=== PATIENT | female | born 1990 | race American Indian/Alaskan Native ===

== ENCOUNTER 2021-02-17 03:42 | Inpatient (IN) | payer MEDICAID ==
[2021-02-17] MEDS ORDERED: OXYTOCIN 10 UNIT/1 ML INJ IM PRN (04:37)
[2021-02-17] MEDS ORDERED: CARBOPROST TROMETHAMINE 250 MCG/1 ML INJ IM PRN (04:37)
[2021-02-17] MEDS ORDERED: MINERAL OIL 30 ML ORAL LIQD PO PRN (04:37)
[2021-02-17] MEDS ORDERED: BUTORPHANOL 2 MG/1 ML INJ IV PRN (04:37)
[2021-02-17] MEDS ORDERED: METHYLERGONOVINE MALEATE 0.2 MG/ML VIAL IM PRN (04:37)
[2021-02-17] MEDS ORDERED: TERBUTALINE 1 MG/1 ML INJ SUB-Q PRN (04:37)
[2021-02-17] MEDS ORDERED: LIDOCAINE (2%) 20 MG/1 ML VIAL 20 ML MDV INFILTRATI ONE ×2 (04:37→09:06)
[2021-02-17] MEDS ORDERED: miSOPROStol 200 MCG TAB PR PRN (04:37)
[2021-02-17] MEDS ORDERED: ONDANSETRON 4 MG/2 ML INJ IV PRN ×2 (04:37→15:00)
[2021-02-17] MEDS ORDERED: ePHEDrine SULFATE 50 MG/1 ML INJ IV PRN ×2 (04:37→09:30)
[2021-02-17] MEDS ORDERED: LOPERAMIDE 2 MG CAP PO PRN (04:37)
[2021-02-17] MEDS ORDERED: ACETAMINOPHEN 325 MG TAB PO PRN ×2 (04:37→14:37)
--- NOTE | 2021-02-17 04:50 | History and Physical Report ---
History of Present Illness Date of examination: 02/17/21 Date of admission: 02/17/21 04:15 Chief complaint: contractions History of present illness: EDC Calculations by LMP: 02/11/2021 Past History : 1 Term Births: 0 Premature Births: 0 Living Children: 0 Para: 0 Mult. Births: 0 Prev : 0 Aborta: 0 Elect. Ab: 0 Spont. Ab: 0 Ectopics: 0 Past Medical History: Reviewed history and no changes required: Negative Past Medical History Past Surgical History: Reviewed history and no changes required: negative Past Medical History Anesthesia Complications: negative Anemia: negative Autoimmune Disorder: negative Bleeding Disorder: negative Blood Transfusions: negative Breast Disease: negative Diabetes: negative Heart Disease: negative Hypertension: negative Hepatitis/Liver Disease: negative Kidney Disease/UTI: negative Neurologic/Epilepsy/Migraines: negative Phlebitis/Varicosities: negative Psychiatric: negative Pulmonary Disease/Asthma: negative Thyroid Disease: negative Hospitalizations: negative Surgery (Non-hse manager): negative Abnormal PAP: negative MARYSE Exposure: negative Infertility: negative Uterine Anomaly: negative Uterine Surgery (not C/S): negative Other Gynecologic Problems: negative Family Hx: CA: grandmother, colon DM: Grandmother HTN: Mother Infection History Hx of STD: none HIV Risk Eval: no Hepatitis B Risk Eval: low risk Personal hx. of genital herpes: no Partner hx. of genital herpes: no Rash, Viral, or Febrile illness since last LMP? no Varicella/Chicken Pox Status: Previous Disease TB Risk: no Genetic History Congenital Heart Defect: Mom: no Dad: no Ashley Disease: Mom: no Dad: no Thalassemia Mom: no Dad: no Neural Tube Defect Mom: no Dad: no Down's Syndrome Mom: no Dad: no Juan-Sachs Mom: no Dad: no Sickle Cell Disease/Trait Mom: no Dad: no Hemophilia Mom: no Dad: no Muscular Dystrophy Mom: no Dad: no Cystic Fibrosis Mom: no Dad: no 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 (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 HPI) Family/Genetic History: other (see HPI) - Obstetrical History Expected Date of Delivery: 02/11/21 Actual Gestation: 40 Week(s) 6 Day(s) : 1 Para: 0 Hx # Term Pregnancies: 0 Number of Pregnancies: 0 Spontaneous Abortions: 0 Induced : 0 Number of Living Children: 0 Medications and Allergies Allergies Allergy/AdvReac Type Severity Reaction Status Date / Time aspirin Allergy Rash Verified 02/17/21 04:15 Home Medications Medication Instructions Recorded Confirmed Last Taken Type Docusate Sodium [Colace] 100 mg PO BID PRN #60 capsule 02/17/21 Unknown Rx Ibuprofen [Motrin 800 MG tab] 800 mg PO Q8HR PRN #30 tablet 02/17/21 Unknown Rx oxyCODONE /ACETAMINOPHEN [Percocet 1 tab PO Q4HR #30 tab 02/17/21 Unknown Rx 5/325] Active Meds: Active Medications Acetaminophen (Acetaminophen 325 Mg Tab) 650 mg PO Q4H PRN PRN Reason: Pain, Mild (1-3) Butorphanol Tartrate (Butorphanol 2 Mg/1 Ml Inj) 1 mg IV Q2H PRN PRN Reason: Pain, Moderate(4-6) LABOR PAIN Carboprost Tromethamine (Carboprost Tromethamine 250 Mcg/1 Ml Inj) 250 mcg IM ONCE PRN PRN Reason: Uterine Bleeding Ephedrine Sulfate (Ephedrine Sulfate 50 Mg/1 Ml Inj) 10 mg IV Q2M PRN PRN Reason: Hypotension Fentanyl (Fentanyl 100 Mcg/2 Ml Inj) 100 mcg IV Q2H PRN PRN Reason: Pain,Severe (7-10) LABOR PAIN Oxytocin/Sodium Chloride (Pitocin/Ns 30 Unit/500ml) 30 units in 500 mls @ 2 mls/hr IV TITR NIK; Protocol Lactated Ringer's (Lactated Ringers) 1,000 mls @ 125 mls/hr IV DIRECT NIK Oxytocin/Sodium Chloride (Pitocin/Ns 30 Unit/500ml) 30 units in 500 mls @ 40 mls/hr IV TITR NIK; Protocol Lidocaine (Lidocaine (2%) 20 Mg/1 Ml Vial 20 Ml Mdv) 20 ml INFILTRATI ONCE ONE Stop: 02/17/21 04:38 Loperamide HCl (Loperamide 2 Mg Cap) 2 mg PO ONCE PRN PRN Reason: give with Hemabate Methylergonovine Maleate (Methylergonovine Maleate 0.2 Mg/Ml Vial) 0.2 mg IM ONCE PRN PRN Reason: Uterine Bleeding Mineral Oil (Mineral Oil 30 Ml Oral Liqd) 30 ml PO QHS PRN PRN Reason: Constipation Misoprostol (Misoprostol 200 Mcg Tab) 800 mcg [place] ONCE PRN PRN Reason: Uterine Bleeding Ondansetron HCl (Ondansetron 4 Mg/2 Ml Inj) 4 mg IV Q8H PRN PRN Reason: Nausea And Vomiting Oxytocin (Oxytocin 10 Unit/1 Ml Inj) 10 unit IM ONCE PRN PRN Reason: Uterine Bleeding Terbutaline Sulfate (Terbutaline 1 Mg/1 Ml Inj) 0.25 mg SUB-Q ONCE PRN PRN Reason: Hyperstimulation/Hypertonicity Review of Systems All systems: negative - Vital Signs Vital signs: Vital Signs Pulse Pulse Ox 86 98 02/17/21 04:04 02/17/21 04:04 Temp Pulse Resp BP Pulse Ox 98.7 F 72 18 134/69 99 02/17/21 04:05 02/17/21 04:43 02/17/21 04:05 02/17/21 04:11 02/17/21 04:43 - Physical Exam Cardiovascular: Regular rate Lungs: Positive: Normal air movement Abdomen: Positive: normal appearance, soft Genitourinary (Female): Positive: normal external genitalia - Obstetrical FHR: category 1 Uterine Contraction Monitor Mode: External Results Result Diagrams: 02/17/21 04:40 All other labs normal. Assessment and Plan 30y/0 @ 40+6 arrived in labor, SROM w/ mec fluid. GBS neg. Admission orders in EMR. - Patient Problems (1) Meconium in amniotic fluid Current Visit: Yes Status: Acute (2) SROM (spontaneous rupture of membranes) Current Visit: Yes Status: Acute (3) 40 weeks gestation of Current Visit: Yes Status: Acute
[2021-02-17] MEDS ORDERED: OXYTOCIN DRIP 30 UNITS/500 ML BAG IV SCH ×2 (05:00)
[2021-02-17] MEDS: fentaNYL 100 MCG/2 ML INJ IV PRN ×2 (05:23→07:38)
[2021-02-17 06:00] LABS: Hematocrit 43.4 % (30.3-42.9); Hemoglobin 15.1 gm/dl (10.1-14.3); Mean Corpuscular HGB Conc 35 % (30-34); Mean Corpuscular Volume 95 fl (79-97); Platelet Count 238 K/mm3 (140-440); Red Blood Count 4.58 M/mm3 (3.65-5.03); Red Cell Distribution Width 13.9 % (13.2-15.2)
[2021-02-17] MEDS: LACTATED RINGERS 1,000 ML IV SCH ×4 (07:07→15:23)
[2021-02-17] MEDS ORDERED: NALOXONE 2 MG/2 ML INJ IV PRN (09:30)
--- NOTE | 2021-02-17 09:34 | Progress Note ---
Assessment and Plan Pt pushing ineffectively. Dr. Buckley called to bedside to assess for poor maternal effort and narrow pelvis. MD at bedside and pt pushing efforts assessed. POC d/w pt. Pt reports desires for epidural. KRISSY Hutson called and notified. RN and pt verbalize understanding and agree to POC - Patient Problems (1) 40 weeks gestation of Current Visit: Yes Status: Acute Plan to address problem: obtain continuous monitoring (2) Meconium in amniotic fluid Current Visit: Yes Status: Acute Plan to address problem: COREY with RT requested for delivery and aware of pt status (3) SROM (spontaneous rupture of membranes) Current Visit: Yes Status: Acute Subjective - Subjective Date of service: 02/17/21 Principal diagnosis: IUP at term, spontaneous rupture of membranes with meconium stained fluid Patient reports: contractions, no new complaints Objective - Vital Signs Vital Signs: Vital Signs - 12hr 02/17/21 02/17/21 02/17/21 04:04 04:05 04:09 Temperature 98.7 F Pulse Rate 86 78 78 Respiratory 18 Rate Blood Pressure Blood Pressure 134/69 [Left] O2 Sat by Pulse 98 98 99 Oximetry 02/17/21 02/17/21 02/17/21 04:11 04:14 04:43 Temperature Pulse Rate 78 77 72 Respiratory Rate Blood Pressure 134/69 Blood Pressure [Left] O2 Sat by Pulse 98 99 Oximetry 02/17/21 02/17/21 02/17/21 04:48 04:53 04:58 Temperature Pulse Rate 80 87 75 Respiratory Rate Blood Pressure Blood Pressure [Left] O2 Sat by Pulse 100 98 98 Oximetry 02/17/21 02/17/21 02/17/21 05:03 05:14 05:19 Temperature Pulse Rate 75 81 73 Respiratory Rate Blood Pressure Blood Pressure [Left] O2 Sat by Pulse 99 98 97 Oximetry 02/17/21 02/17/21 02/17/21 05:23 05:24 05:29 Temperature Pulse Rate 78 85 Respiratory 22 Rate Blood Pressure Blood Pressure [Left] O2 Sat by Pulse 97 99 Oximetry 02/17/21 02/17/21 02/17/21 05:34 05:39 05:44 Temperature Pulse Rate 70 69 70 Respiratory Rate Blood Pressure Blood Pressure [Left] O2 Sat by Pulse 97 98 97 Oximetry 02/17/21 02/17/21 02/17/21 05:49 05:54 05:59 Temperature Pulse Rate 67 74 62 Respiratory Rate Blood Pressure Blood Pressure [Left] O2 Sat by Pulse 99 96 98 Oximetry 02/17/21 02/17/21 02/17/21 06:04 06:09 06:14 Temperature Pulse Rate 66 68 65 Respiratory Rate Blood Pressure Blood Pressure [Left] O2 Sat by Pulse 98 98 99 Oximetry 02/17/21 02/17/21 02/17/21 06:15 06:19 06:24 Temperature Pulse Rate 61 69 73 Respiratory Rate Blood Pressure 122/73 Blood Pressure [Left] O2 Sat by Pulse 100 97 Oximetry 02/17/21 02/17/21 02/17/21 06:29 06:44 06:49 Temperature Pulse Rate 72 81 74 Respiratory Rate Blood Pressure Blood Pressure [Left] O2 Sat by Pulse 99 99 99 Oximetry 02/17/21 02/17/21 02/17/21 06:54 06:59 07:04 Temperature Pulse Rate 76 79 76 Respiratory Rate Blood Pressure Blood Pressure [Left] O2 Sat by Pulse 97 98 99 Oximetry 02/17/21 02/17/21 02/17/21 07:06 07:09 07:14 Temperature Pulse Rate 83 77 86 Respiratory Rate Blood Pressure 136/80 Blood Pressure [Left] O2 Sat by Pulse 99 97 Oximetry 02/17/21 02/17/21 02/17/21 07:19 07:24 08:23 Temperature Pulse Rate 94 H 89 89 Respiratory Rate Blood Pressure Blood Pressure [Left] O2 Sat by Pulse 100 100 100 Oximetry 02/17/21 02/17/21 02/17/21 08:28 08:29 08:30 Temperature Pulse Rate 94 H 89 78 Respiratory Rate Blood Pressure 136/72 Blood Pressure [Left] O2 Sat by Pulse 99 93 Oximetry 02/17/21 02/17/21 02/17/21 08:33 08:36 08:38 Temperature Pulse Rate 83 89 80 Respiratory Rate Blood Pressure 138/75 Blood Pressure [Left] O2 Sat by Pulse 99 99 Oximetry 02/17/21 02/17/21 02/17/21 08:43 08:46 08:48 Temperature Pulse Rate 83 99 H 74 Respiratory Rate Blood Pressure Blood Pressure [Left] O2 Sat by Pulse 98 93 97 Oximetry 02/17/21 02/17/21 02/17/21 08:52 08:53 08:58 Temperature Pulse Rate 88 79 88 Respiratory Rate Blood Pressure Blood Pressure [Left] O2 Sat by Pulse 91 98 99 Oximetry 02/17/21 02/17/21 02/17/21 09:03 09:07 09:08 Temperature Pulse Rate 82 81 83 Respiratory Rate Blood Pressure 131/74 Blood Pressure [Left] O2 Sat by Pulse 97 98 Oximetry 02/17/21 02/17/21 02/17/21 09:09 09:13 09:18 Temperature Pulse Rate 80 80 81 Respiratory Rate Blood Pressure Blood Pressure [Left] O2 Sat by Pulse 89 98 98 Oximetry 02/17/21 09:23 Temperature Pulse Rate 79 Respiratory Rate Blood Pressure Blood Pressure [Left] O2 Sat by Pulse 98 Oximetry - Exam Breasts: deferred Cardiovascular: Regular rate Lungs: Normal air movement Abdomen: Present: normal appearance, soft Vulva: both: normal Uterus: Present: normal, other (gravid) FHR: auscultation normal, category 1 FHR comments: moderate variability with early decelerations noted Uterine Contraction Monitor Mode: External Cervical Dilatation: 10 Cervical Effacement Percentage: 100 station: +1 Uterine Contraction Pattern: Regular Uterine Tone Measurement Phase: Contraction Uterine Contraction Intensity: Strong/Firm Extremities: normal - Labs Labs: Abnormal Labs 02/17/21 04:40 WBC 12.0 H Hgb 15.1 H Hct 43.4 H MCH 33 H MCHC 35 H Laboratory Results - last 24 hr 02/17/21 02/17/21 02/17/21 04:40 04:40 04:40 WBC 12.0 H RBC 4.58 Hgb 15.1 H Hct 43.4 H MCV 95 MCH 33 H MCHC 35 H RDW 13.9 Plt Count 238 Syphilis IgG Antibody Nonreactive Blood Type A POSITIVE Antibody Screen Negative
[2021-02-17] MEDS ORDERED: fentaNYL-BUPIV 2 MCG/ML-0.125% 200 MCG/100 ML BAG EPIDURAL SCH (10:00)
--- NOTE | 2021-02-17 10:55 | Event Note ---
Date: 02/17/21 Pt reports exhaustion. FHT's with variable and late decelerations and moderate variability during pushing. Caput assessed and lack of decent noted with maternal efforts. Informed consent performed and pt reports desires for section. Risks with surgery including but not limited to infection, trauma, bleeding, compromise to organs, maternal and/or d/w pt and FOB. Pt verbalizes understanding and agrees to section. Dr. Buckley made aware. Pre-OP orders placed. Pitocin turned off.
[2021-02-17] MEDS ORDERED: METOCLOPRAMIDE 10 MG/2 ML INJ IV SCH (11:00)
[2021-02-17] MEDS ORDERED: EMLA CREAM 5 GM TP PRN (11:00)
[2021-02-17] MEDS ORDERED: LACTATED RINGERS 1,000 ML IV SCH (11:00)
[2021-02-17] MEDS ORDERED: AZITHROMYCIN/NS 500 MG/250 ML 500 MG/250 ML BAG IV SCH (11:00)
[2021-02-17] MEDS ORDERED: ceFAZolin/Water 2 GM/20 ML 2 GM/20 ML SYRINGE IV NR (11:00)
[2021-02-17] MEDS ORDERED: FAMOTIDINE 20 MG/2 ML INJ IV SCH (11:00)
[2021-02-17] MEDS ORDERED: BICITRA ORAL LIQD 30ML PO SCH (11:00)
--- NOTE | 2021-02-17 11:27 | Event Note ---
Date: 02/17/21 Late entry: called. Awaiting room and staffing at this time. Charge nurse is aware of pt and c/s being called as well as anesthesia. Provider at bedside. Pt expressed no questions at this time. Consents signed and placed on the chart.
[2021-02-17] MEDS ORDERED: LIDOCAINE 2%/EPINEPHRINE 1:200,000 VIAL (20 ML) INFILTRATI ONE (12:36)
[2021-02-17] MEDS ORDERED: ONDANSETRON 4 MG/2 ML INJ ONE ×2 (13:39)
[2021-02-17] MEDS ORDERED: OXYTOCIN 10 UNIT/1 ML INJ ONE (13:47)
[2021-02-17] MEDS ORDERED: BUPIVACAINE/PF (0.25%) 2.5 MG/ML 30 ML VIAL INFILTRATI ONE ×2 (13:50)
[2021-02-17] MEDS ORDERED: dexAMETHasone 20 MG/5 ML VIAL ONE (13:50)
--- NOTE | 2021-02-17 14:21 | Operative Report ---
Operative Report Operative Report: Date of procedure: 02/17/2021 Pre-operative diagnosis: 40+ weeks gestation Failure to descend intolerance to labor Post-operative diagnosis: Same plus OP presentation Procedure name(s): Primary low transverse section via Pfannenstiel skin incision Surgeon: Dr. Buckley Tip Stitcher: KAI Anesthesia: Epidural QBL: 729 ml Urine output: 100 mL of blood-tinged urine out at end of the procedure. Should be noted that patient had blood tinged urine prior to the onset of the procedure that was clearing in the catheter at the end of the procedure. Fluids: 1100 mL Findings: Liveborn female weight 7 pounds 1 ounce Apgars of 8 and 9 at 1 and 5 minutes ROP presentation Grossly normal fallopian tubes and ovaries bilaterally Indications: Patient presented in active labor after having spontaneous rupture membranes with meconium noted. Patient progressed to completely dilated completely effaced but remained at 0 to +1 station over 4 hours. Patient was also noted to have decelerations with pushing. Decision was made to proceed with delivery. Procedure: Patient was taking to the operating room. Patient was then prepped and draped in sterile fashion after anesthesia was found to be adequate. A low transverse skin incision was made with the scalpel and carried down to the underlying layer of fascia with the Bovie. The fascia was then incised in the midline and this incision was extended bilaterally with the Bovie. The superior aspect of the fascia was grasped with Emilia clamps tented upward and dissected off of the anterior rectus muscles with the scalpel. In similar fashion the inferior aspect of the fascia was grasped with Emilia clamps tented upward and dissected off of the anterior rectus muscles. The rectus muscles were then bluntly divided in the midline. The peritoneum was identified and entered into sharply. The bladder blade was placed. Delete A lower transverse uterine incision was made with the scalpel and extended bilaterally with the blunt dissection. Entry into the uterus yielded meconium stained fluid. The 's head was then delivered atraumatically. The anterior shoulder and rest of delivered without difficulty. The umbilical cord was clamped x2. The cord was cut. The was then placed in sterile bassinet. The placenta was manually extracted in its entirety. The uterus was exteriorized and cleared of all clots and debris. The uterine incision was closed using 0 Vicryl in a running locking fashion. A second imbricating layer of the same suture was then created. Several [id number] sutures were also used along the uterine incision to secure excellent hemostasis. The posterior cul-de-sac was copiously irrigated. The uterus was returned to the abdomen. The gutters were also irrigated. The anterior rectus muscles were reapproximated using 3-0 Vicryl. The anterior rectus fascia was reapproximated using 0 Vicryl in a running fashion. The subcuticular fat was reapproximated using 2-0 Vicryl in a running fashion. The skin was reapproximated with 4-0 Monocryl in a subcuticular stitch. The patient tolerated the procedure well. Sponge lap and needle counts were all correct x3. Patient was taken to the recovery room awake and in stable condition.
[2021-02-17] MEDS ORDERED: LANOLIN/ZINC/DIMETHICONE (LANSINOH) 7 GM TP PRN (14:29)
[2021-02-17] MEDS ORDERED: SIMETHICONE 80 MG CHEW TAB PO PRN (14:29)
[2021-02-17] MEDS ORDERED: NALOXONE 0.4 MG/1 ML INJ IV PRN ×2 (14:29→15:00)
[2021-02-17] MEDS ORDERED: MORPHINE 4 MG/1 ML INJ IV PRN (14:29)
--- NOTE | 2021-02-17 14:47 | Anesthesia Day of Surgery ---
Anesthesia Day of Surgery - Day of Surgery Patient Examined: Yes Patient H&P Reviewed: Yes Patient is NPO: Yes Beta Blockers: No Cardiac Clearance: No Pulmonary Clearance: No Demetrius's Test: Negative
--- NOTE | 2021-02-17 14:48 | Anesthesia Consultation ---
Anesthesia Consult and Med Hx Date of service: 02/17/21 - Airway Anesthetic Teeth Evaluation: Poor ROM Head & Neck: Adequate Mental/Hyoid Distance: Adequate Mallampati Class: Class II Intubation Access Assessment: Probably Good - Pulmonary Exam CTA: Yes - Cardiac Exam Cardiac Exam: RRR - Pre-Operative Health Status ASA Pre-Surgery Classification: ASA2 Proposed Anesthetic Plan: Epidural - Pulmonary Hx Smoking: No Hx Asthma: No Hx Respiratory Symptoms: No SOB: No COPD: No Home Oxygen Therapy: No Hx Pneumonia: No Hx Sleep Apnea: No - Cardiovascular System Hx Hypertension: No Hx Coronary Artery Disease: No Hx Heart Attack/AMI: No Hx Angina: No Hx Percutaneous Transluminal Coronary Angioplasty (PTCA): No Hx Cardia Arrhythmia: No Hx Pacemaker: No Hx Internal Defibrillator: No Hx Valvular Heart Disease: No Hx Heart Murmur: No Hx Peripheral Vascular Disease: No - Central Nervous System Hx Neuromuscular Disorder: No Hx Seizures: No CVA: No Hx Back Pain: Yes Hx Psychiatric Problems: No - Gastrointestinal Hx Ulcer: No Hx Gastroesophageal Reflux Disease: Yes - Endocrine Hx Renal Disease: No Hx End Stage Renal Disease: No Hx Cirrhosis: No Hx Liver Disease: No Hx Insulin Dependent Diabetes: No Hx Non-Insulin Dependent Diabetes: No Hx Thyroid Disease: No Hx Hypothyroidism: No Hx Hyperthyroidism: No - Hematic Hx Anemia: No Hx Sickle Cell Disease: No - Other Systems Hx Alcohol Use: No Hx Substance Use: No Hx Cancer: No Hx Obesity: Yes
--- NOTE | 2021-02-17 14:50 | Progress Note ---
Labor Epidural - Labor Epidural Start Time: 09:30 Stop Time: 09:40 Performed by:: LV NARVAEZ Procedure: Patient is requesting a laboring epidural for laboring pain. Patient IDed, H&P reviewed, all questions and concerns were answered, and consent was signed. Timeout was performed at bedside. Patient in sitting position. Sterile prep and drape was performed. [3] ml of 1% lidocaine skin wheal at L[3]- L [4]. 18- gauge Tuohy epidural needle was advanced to loss of resistance with saline technique 8cm. Negative CSF negative blood. Epidural catheter advanced to [12] centimeters. [NEGATIVE] Aspiration [NEGATIVE] test dose. Sterile dressing applied. Patient tolerated procedure.
--- NOTE | 2021-02-17 14:52 | Progress Note ---
Spinal Anesthesia Block - Spinal Anesthesia Block Start Time: 13:13 Stop Time: 13:16 Performed by:: LV NARVAEZ Procedure: Epidural Catheter removed level not sufficient for surgery. Timeout was performed at bedside. Patient in sitting position. Sterile prep and drape was performed. [3] ml of 1% lidocaine skin wheal at L[3]- L [4]. Needle introducer advanced. 25 gauge spinal needle advanced. Clear, free flowing CSF. negative blood, negative paresthesia. Spinal dose given. All needles removed. Patient tolerated procedure.
--- NOTE | 2021-02-17 14:52 | Progress Note ---
Regional Anesthesia Block - Regional Anesthesia Block Start Time: 14:22 Stop Time: 14:25 Performed By:: LV NARVAEZ Procedure: Patient consented for TAP block for post surgical pain management. Patient identified, monitors placed, and time out performed. TAP identified bilaterally via ultrasound. Skin prepped bilaterally with [chlorhexidine] and [22g stimuplex] needle advanced to the TAP. [Marcaine 0.25% 35ml] injected under ultrasound guidance on the [left] side. [Marcaine 0.25% 35ml] injected under ultrasound guidance on the [right] side. Negative aspiration every 5mL, No change in heart rate or rhythm. Patient tolerated the procedure well. No apparent complications seen.
--- NOTE | 2021-02-17 14:54 | Post Anesthesia Evaluation ---
- Post Anesthesia Evaluation Patient Participated: Yes Airway Patent: Yes Stable Respiratory Function: Yes Nausea/Vomiting: No Temp > 96.8F: Yes Pain Manageable: Yes Adequeate Hydration: Yes Anesthesia Complications: No Block Receding Appropriately: Yes Patient on Ventilator: No
[2021-02-17] MEDS ORDERED: WITCH HAZEL/ GLYCERIN PAD TP PRN (15:00)
[2021-02-17] MEDS ORDERED: HYDROmorphone 1 MG/1 ML INJ IV PRN ×2 (15:00)
[2021-02-17] MEDS ORDERED: KETOROLAC 30 MG/1 ML INJ IV PRN ×2 (15:00)
[2021-02-17] MEDS ORDERED: ACETAMINOPHEN 500 MG TAB PO PRN (15:00)
[2021-02-17] MEDS: ceFAZolin/NS 1 GM/50 ML 1 GM/50 ML BAG IV SCH (19:51)
[2021-02-18] MEDS ORDERED: D5W/LACTATED RINGERS 1,000 ML IV SCH (02:00)
[2021-02-18] MEDS: ceFAZolin/NS 1 GM/50 ML 1 GM/50 ML BAG IV SCH (03:35)
[2021-02-18] MEDS ORDERED: TETANUS,DIPH,PERTUSS(ACELL) VACCINE 0.5 ML SYRINGE IM ONE (06:00)
[2021-02-18 06:33] LABS: Hematocrit 37.2 % (30.3-42.9); Hemoglobin 12.2 gm/dl (10.1-14.3)
--- NOTE | 2021-02-18 08:38 | Progress Note ---
Assessment and Plan A: 30 y.o. s/p primary , POD #1. P: Continue with care. Advance diet as tolerated. Encourage ambulation. Anticipate discharge home in AM. Subjective - Subjective Date of service: 02/18/21 (Pt sore but doing well) Principal diagnosis: s/p primary , POD #1 Patient reports: appetite normal, voiding normally, pain well controlled, ambulating normally [place]: doing well Objective - Vital Signs Latest vital signs: Vital Signs Temp Pulse Resp BP BP Pulse Ox Pulse Ox 02/18/21 07:47 98.3 F 87 20 123/64 98 02/18/21 06:00 98.6 F 87 18 118/64 99 02/18/21 03:57 18 02/18/21 00:27 99.2 F 90 20 115/54 98 02/17/21 23:12 18 02/17/21 21:18 98.3 F 78 20 120/70 100 02/17/21 19:50 99 02/17/21 18:05 98 02/17/21 16:00 97.4 F L 52 L 20 131/82 98 98 02/17/21 15:30 97.5 F L 59 L 18 98 02/17/21 15:25 56 L 18 132/74 98 02/17/21 15:15 57 L 18 135/60 98 02/17/21 15:10 50 L 18 124/70 98 02/17/21 15:00 97.5 F L 59 L 18 128/67 98 02/17/21 14:55 62 18 128/76 98 02/17/21 14:45 60 18 118/73 98 02/17/21 14:40 65 14 119/75 98 02/17/21 14:35 71 17 120/77 97 02/17/21 14:32 97.7 F 61 12 120/66 98 02/17/21 13:03 81 98 02/17/21 13:00 69 143/76 02/17/21 12:59 85 02/17/21 12:58 66 97 02/17/21 12:53 72 97 02/17/21 12:48 63 98 02/17/21 12:45 56 L 151/82 02/17/21 12:43 60 98 02/17/21 12:41 76 132/65 02/17/21 12:38 82 98 10/27/21 12:33 74 97 02/17/21 12:29 81 157/76 94 02/17/21 12:28 81 98 02/17/21 12:23 75 97 02/17/21 12:18 79 98 02/17/21 12:15 69 134/65 02/17/21 12:13 79 97 02/17/21 12:12 92 H 92 02/17/21 12:08 79 99 02/17/21 12:03 88 97 02/17/21 11:59 101 H 132/68 02/17/21 11:58 69 100 02/17/21 11:53 89 98 02/17/21 11:48 95 H 97 02/17/21 11:44 77 131/64 02/17/21 11:43 86 96 02/17/21 11:38 80 97 02/17/21 11:34 91 H 94 02/17/21 11:33 75 98 02/17/21 11:29 84 132/66 02/17/21 11:28 91 H 97 02/17/21 11:23 86 98 02/17/21 11:18 77 98 02/17/21 11:15 86 135/61 02/17/21 11:13 77 99 02/17/21 11:08 68 100 02/17/21 11:03 64 100 02/17/21 11:00 89 138/73 02/17/21 10:58 95 H 100 02/17/21 10:53 70 100 02/17/21 10:48 82 99 02/17/21 10:46 87 136/71 02/17/21 10:43 70 100 02/17/21 10:38 115 H 99 02/17/21 10:36 103 H 91 02/17/21 10:33 96 H 98 02/17/21 10:29 78 131/56 02/17/21 10:28 83 99 02/17/21 10:23 81 100 02/17/21 10:22 89 94 02/17/21 10:18 82 134/67 100 02/17/21 10:13 76 132/71 98 02/17/21 10:09 78 130/73 02/17/21 10:08 72 99 02/17/21 10:04 70 126/67 02/17/21 10:03 71 99 02/17/21 09:58 66 123/69 99 02/17/21 09:53 68 124/65 98 02/17/21 09:48 71 99 02/17/21 09:47 79 137/66 02/17/21 09:45 72 129/68 02/17/21 09:43 70 122/68 97 02/17/21 09:41 70 121/65 02/17/21 09:39 84 124/66 94 02/17/21 09:38 82 99 02/17/21 09:37 80 117/59 02/17/21 09:35 78 112/59 02/17/21 09:33 80 97 02/17/21 09:30 97.8 F 20 02/17/21 09:28 92 H 96 02/17/21 09:25 99 H 90 02/17/21 09:23 79 98 02/17/21 09:18 81 98 02/17/21 09:13 80 98 02/17/21 09:09 80 89 02/17/21 09:08 83 98 02/17/21 09:07 81 131/74 02/17/21 09:03 82 97 02/17/21 08:58 88 99 02/17/21 08:53 79 98 02/17/21 08:52 88 91 02/17/21 08:48 74 97 02/17/21 08:46 99 H 93 02/17/21 08:43 83 98 Intake and Output 02/17/21 02/18/21 02/18/21 22:59 06:59 14:59 Intake Total 1410 600 Output Total 1200 600 Balance 210 0 Intake: IV 1050 ANCEF/NS 1 GM/50 ML 1 gm 50 In 50 ml @ 100 mls/hr IV Q8H [facility] Rx#:[id number] Oral 360 Intake, Free Water 600 Output: Urine 1200 600 Indwelling Catheter 400 600 Other: Total, Intake Amount 120 Total, Output Amount 400 600 # Voids Indwelling Catheter 0 Void 1 Estimated Blood Loss 729 - Exam Breasts: Present: deferred Cardiovascular: Present: Regular rate Lungs: Present: Normal air movement Abdomen: Present: normal appearance, soft Vulva: both: normal Uterus: Present: normal, firm Extremities: Present: normal Incision: Present: normal, dry, intact, dressed
[2021-02-18] MEDS: PRENATAL VIT27-FE FUMARATE-FOLIC ACID VIT TAB PO SCH (10:42)
[2021-02-18] MEDS: HYDROcodone/ACETAMINOPHEN 5-325 MG TAB PO PRN ×2 (10:42→20:11)
[2021-02-19] MEDS: HYDROcodone/ACETAMINOPHEN 5-325 MG TAB PO PRN ×2 (01:27→09:10)
[2021-02-19] MEDS: PRENATAL VIT27-FE FUMARATE-FOLIC ACID VIT TAB PO SCH (10:00)
--- NOTE | 2021-02-19 12:41 | Discharge Summary ---
Providers - Providers Date of Admission: 02/17/21 04:37 Date of discharge: 02/19/21 Attending physician: LETICIA VAZQUEZ Primary care physician: LETICIA VAZQUEZ Hospitalization Reason for admission: active labor, rupture of membranes Delivery: Procedure: primary low transverse Incision: normal, dry, intact complications: none Discharge diagnosis: IUP at term delivered [place] baby: female Pertinent studies: H&H 12.2/37.2 Hospital course: Normal hospital course, pp , lochia scant and fundus firm. Incision [employer] and healing. Pt ambulating well. Condition at discharge: Good Disposition: 01 HOME / SELF CARE / HOMELESS Plan - Discharge Medications Prescriptions: Docusate Sodium [Colace] 100 mg PO BID PRN #60 capsule PRN Reason: Constipation Ibuprofen [Motrin 800 MG tab] 800 mg PO Q8HR PRN #30 tablet PRN Reason: Pain, Moderate (4-6) oxyCODONE /ACETAMINOPHEN [Percocet 5/325] 1 tab PO Q4HR #30 tab - Provider Discharge Summary Activity: routine, no sex for 6 weeks, no heavy lifting 4 weeks, no strenuous exercise Diet: routine Instructions: routine Additional instructions: [] Smoking cessation referral if applicable(refer to patient education folder for contact #) [] Refer to [facility]'s [facility] Booklet Call your doctor immediately for: * Fever > 100.5 * Heavy vaginal bleeding ( >1 pad per hour) * Severe persistent headache * Shortness of breath * Reddened, hot, painful area to leg or breast * Drainage or odor from incision. * Keep incision clean and dry at all times and follow doctor's instructions regarding bathing/showering Congratulations on the of your baby girl. Please schedule an incision check in the office in 1 week. Should you have any questions or concerns after discharge please do not hesitate to call the office at [phone]. - Follow up plan Follow up: LETICIA VAZQUEZ MD [Primary Care Provider] - 7 Days
[2021-02-19 14:37] VITALS: BP 122/77
== END 2021-02-19 15:40 | disposition home or self-care (01) | DRG 766 ==
LOC: TRG 03:42 → APU 03:49 → LD 04:15 → TRG 04:15 → LD 04:35 → OBSVTOIN 04:37 → APU 14:40 → OB 15:43
PROVIDERS: ADMIT Obstetrics & Gynecology; ATTEND Obstetrics & Gynecology
PROC: 10D00Z1 Extraction of Products of Conception, Low, Open Approach (ICD-10-PCS; principal; 2021-02-17)
PROC: 3E0234Z Introduction of Serum, Toxoid and Vaccine into Muscle, Percutaneous Approach (ICD-10-PCS; 2021-02-18)
DX: O77.0 Labor and delivery complicated by meconium in amniotic fluid (principal); Z3A.40 40 weeks gestation of pregnancy; Z37.0 Single live birth; O99.62 Diseases of the digestive system complicating childbirth; K59.00 Constipation, unspecified; Z20.822 Contact with and (suspected) exposure to COVID-19; Z23 Encounter for immunization
CPT/HCPCS: 36415; 85014; 85018; 85027; 86592; 86850; 86900; 86901; 88307; 99211; G0378; G0463; J0456; J0690; J1100; J1885; J2270; J2405; J2590; J2765; J3010; J3490; J7120; J7121; U0003